=== PATIENT | male | born 2000 | race Two or more races ===

== ENCOUNTER 2023-01-31 15:17 | Emergency (ER) | payer OTHER ==
[2023-01-31 15:24] VITALS: RESP 18; TEMP 98.1
--- NOTE | 2023-01-31 17:27 | ED ---
General Adult HPI - General Source: patient Mode of arrival: ambulatory Limitations: no limitations <Bhargavi Forrest - Last Filed: 01/31/23 17:27> - History of Present Illness Onset/Timin -: hour(s) Location: abdomen Radiation: non-radiation Quality: aching Consistency: constant Improves with: none Worsens with: none Associated Symptoms: nausea/vomiting Treatments Prior to Arrival: none <Luis Andino - Last Filed: 02/12/23 23:23> - General Chief complaint: Abdominal Pain Stated complaint: abd pain Time Seen by Provider: 01/31/23 17:27 - History of Present Illness Initial comments: 22-year-old -M[place] male presents the emergency department with a chief complaint of lower abdominal pain that started last night. He is complaining of accompanying symptoms of nausea and vomiting. (Bhargavi Forrest) this patient presents with complaint of left lower quadrant pain as well as vomiting and diarrhea that it started last night. Patient states he is at [facility] and they felt that he should have evaluation here for the pain. Patient states she had 3 episodes of vomiting and 3 episodes of diarrhea in the past day. No coffee-ground emesis. No bloody or tarry stools. (Luis Andino) - Related Data Previous Rx's Medication Instructions Recorded Dicyclomine [Bentyl] 20 mg PO QID #15 tablet 01/31/23 Ondansetron Odt [Zofran ODT] 4 mg PO Q8HR PRN #10 tab 01/31/23 Allergies Allergy/AdvReac Type Severity Reaction Status Date / Time No Known Allergies Allergy Verified 01/31/23 15:24 Review of Systems ROS Other: All systems not noted in ROS Statement are negative. <Bhargavi Forrest - Last Filed: 01/31/23 17:27> ROS Other: All systems not noted in ROS Statement are negative. Constitutional: Denies: fever, chills Respiratory: Denies: cough, dyspnea Cardiovascular: Denies: chest pain, palpitations Gastrointestinal: Reports: abdominal pain, nausea, vomiting, diarrhea. Denies: hematemesis, melena, hematochezia Genitourinary: Denies: dysuria, hematuria, testicular pain Musculoskeletal: Denies: back pain Skin: Denies: rash Neurological: Denies: headache, weakness, numbness <Luis Andino - Last Filed: 02/12/23 23:23> ROS Statement: Those systems with pertinent positive or pertinent negative responses have been documented in the HPI. Past Medical History Past Medical History: Unable to Obtain History of Any Multi-Drug Resistant Organisms: None Reported Past Surgical History: Unable to Obtain Past Psychological History: ADD/ADHD, Anxiety Smoking Status: Current some day smoker Past Alcohol Use History: None Reported Past Drug Use History: Marijuana, Prescription Drug Abuse <AdrianeBhargavi - Last Filed: 01/31/23 17:27> General Exam Limitations: no limitations <AdrianeBhargavi - Last Filed: 01/31/23 17:27> General appearance: alert, in no apparent distress Head exam: Present: atraumatic, normocephalic Eye exam: Present: normal appearance. Absent: scleral icterus, conjunctival injection Neck exam: Present: normal inspection Respiratory exam: Present: normal lung sounds bilaterally. Absent: respiratory distress, wheezes, rales, rhonchi, stridor Cardiovascular Exam: Present: regular rate, normal rhythm, normal heart sounds. Absent: systolic murmur, diastolic murmur, rubs, gallop GI/Abdominal exam: Present: soft, tenderness. Absent: distended, guarding, rebound, rigid, mass, pulsatile mass, hernia Extremities exam: Present: normal inspection, normal capillary refill. Absent: pedal edema, calf tenderness Back exam: Present: normal inspection. Absent: CVA tenderness (R), CVA tenderness (L) Neurological exam: Present: alert Skin exam: Present: warm, dry, intact, normal color. Absent: rash <Luis Andino - Last Filed: 02/12/23 23:23> - General Exam Comments Initial Comments: Visual Physical Exam Vital signs reviewed General: Well-appearing, nontoxic, no acute distress. Head: Normocephalic, atraumatic Eyes: PERRLA, EOMI ENT: Airway patent Chest: Nonlabored breathing Skin: No visual rash, normal skin tone Neuro: Alert and oriented 3 Musculoskeletal: No gross abnormalities (Bhargavi Forrest) Course Vital Signs 01/31/23 01/31/23 15:19 20:59 Temperature 98.1 F Pulse Rate 63 69 Respiratory 18 18 Rate Blood Pressure 120/70 122/76 O2 Sat by Pulse 98 98 Oximetry Medical Decision Making - Lab Data Result diagrams: 01/31/23 19:08 01/31/23 19:08 <Luis nAdino - Last Filed: 02/12/23 23:23> - Medical Decision Making This patient is a 22-year-old man [facility] to have evaluation for his abdominal pain and vomiting. He did have computed tomography scan of the abdomen which I interpreted as showing no evidence of acute surgical condition or bowel obstruction. Was pt. sent in by a medical professional or institution (, MARYAN, HOT ROOM ATTENDANT, urgent care, hospital, or correction...) When possible be specific @ -Patient is sent from [facility] to have evaluation Did you speak to anyone other than the patient for history (EMS, parent, family, police, friend...)? What history was obtained from this source @ -[No] Did you review nursing and triage notes (agree or disagree)? Why? @ -[I reviewed and agree with nursing and triage notes] Were old charts reviewed (outside hosp., previous admission, EMS record, old EKG, old radiological studies, urgent care reports/EKG's, correction records)? Report findings @ -[No old charts were reviewed] Differential Diagnosis (chest pain, altered mental status, abdominal pain women, abdominal pain men, vaginal bleeding, weakness, fever, dyspnea, syncope, headache, dizziness, GI bleed, back pain, seizure, CVA, palpatations, mental health, musculoskeletal)? @ -MDM differential abdominal pain EKG interpreted by me (3pts min.). @ -[ X-rays interpreted by me (1pt min.). @ -[None done] CT interpreted by me (1pt min.). @ -[As above U/S interpreted by me (1pt. min.). @ -[None done] What testing was considered but not performed or refused? (CT, X-rays, U/S, labs)? Why? @ -[None] What meds were considered but not given or refused? Why? @ -[None] Did you discuss the management of the patient with other professionals (professionals i.e. MARYAN Ortiz, HOT ROOM ATTENDANT, lab, RT, psych nurse, social director, equipment cleaner, teacher, bsa officer, community case manager)? Give summary @ -[No] Was smoking cessation discussed for >3mins.? @ -[No] Was critical care preformed (if so, how long)? @ -[No] Were there social determinants of health that impacted care today? How? (Homelessness, low income, unemployed, alcoholism, drug addiction, transportation, low edu. Level, literacy, decrease access to med. care, shelter, rehab)? @ -[No] Was there de-escalation of care discussed even if they declined (Discuss DNR or withdrawal of care, Hospice)? DNR status @ -[No] What co-morbidities impacted this encounter? (DM, HTN, Smoking, COPD, CAD, Cancer, CVA, ARF, Chemo, Hep., AIDS, mental health diagnosis, sleep apnea, morbid obesity)? @ -[None] Was patient admitted / discharged? Hospital course, mention meds given and route, prescriptions, significant lab abnormalities, going to OR and other pertinent info. @ -Patient is discharged here after having symptomatic treatment for his abdominal pain. He has had good relief. Discussed appropriate further care and follow-up as well as return parameters. Undiagnosed new problem with uncertain prognosis? @ -[No] Drug Therapy requiring intensive monitoring for toxicity (Heparin, Nitro, Insulin, Cardizem)? @ -[No] Were any procedures done? @ -[No] Diagnosis/symptom? @ -[Acute abdominal pain Acute, or Chronic, or Acute on Chronic? @ -[default] Uncomplicated (without systemic symptoms) or Complicated (systemic symptoms)? @ -[Uncomplicated Side effects of treatment? @ -[No] Exacerbation, Progression, or Severe Exacerbation? @ -[No] Poses a threat to life or bodily function? How? (Chest pain, [place], [place], pneumonia, PE, COPD, DKA, ARF, appy, cholecystitis, CVA, Diverticulitis, Homicidal, Suicidal, threat to staff... and all critical care pts) @ -[No] (Luis Andino) - Lab Data Lab Results 01/31/23 01/31/23 01/31/23 Range/Units 19:08 19:08 19:08 WBC 10.7 H (3.8-10.6) k/uL RBC 4.99 (4.30-5.90) m/uL Hgb 14.7 (13.0-17.5) gm/dL Hct 44.0 (39.0-53.0) % MCV 88.2 (80.0-100.0) fL MCH 29.4 (25.0-35.0) pg MCHC 33.4 (31.0-37.0) g/dL RDW 13.7 (11.5-15.5) % Plt Count 197 (150-450) k/uL MPV 7.1 Neutrophils % 63 % Lymphocytes % 28 % Monocytes % 4 % Eosinophils % 3 % Basophils % 0 % Neutrophils # 6.8 (1.3-7.7) k/uL Lymphocytes # 3.0 (1.0-4.8) k/uL Monocytes # 0.5 (0-1.0) k/uL Eosinophils # 0.3 (0-0.7) k/uL Basophils # 0.0 (0-0.2) k/uL Sodium 139 (137-145) mmol/L Potassium 4.0 (3.5-5.1) mmol/L Chloride 111 H (98-107) mmol/L Carbon Dioxide 21 L (22-30) mmol/L Anion Gap 7 mmol/L BUN 9 (9-20) mg/dL Creatinine 0.86 (0.66-1.25) mg/dL Est GFR (CKD-EPI)AfAm >90 (>60 ml/min/1.73 sqM) Est GFR (CKD-EPI)NonAf >90 (>60 ml/min/1.73 sqM) Glucose 86 (74-99) mg/dL Calcium 8.8 (8.4-10.2) mg/dL Total Bilirubin 1.2 (0.2-1.3) mg/dL AST 23 (17-59) U/L ALT 16 (4-49) U/L Alkaline Phosphatase 89 (38-126) U/L C-Reactive Protein <0.5 (<1.0) mg/dL Total Protein 7.5 (6.3-8.2) g/dL Albumin 4.2 (3.5-5.0) g/dL Amylase 69 (30-110) U/L Lipase 33 (23-300) U/L Urine Color Yellow Urine Appearance Clear (Clear) Urine pH 6.0 (5.0-8.0) Ur Specific Thompson 1.025 (1.001-1.035) Urine Protein Negative (Negative) Urine Glucose (UA) Negative (Negative) Urine Ketones 2+ H (Negative) Urine Blood Trace H (Negative) Urine Nitrite Negative (Negative) Urine Bilirubin Negative (Negative) Urine Urobilinogen <2.0 (<2.0) mg/dL Ur Leukocyte Esterase Negative (Negative) Urine RBC 1 (0-5) /hpf Urine WBC 1 (0-5) /hpf Ur Squamous Epith Cells <1 (0-4) /hpf Urine Mucus Many H (None) /hpf Disposition <Bhargavi Forrest - Last Filed: 01/31/23 17:27> Is patient prescribed a controlled substance at d/c from ED?: No <Luis Andino - Last Filed: 02/12/23 23:23> Clinical Impression: Abdominal pain Disposition: HOME SELF-CARE Condition: Good Instructions (If sedation given, give patient instructions): Abdominal Pain (ED) Prescriptions: Dicyclomine [Bentyl] 20 mg PO QID #15 tablet Ondansetron Odt [Zofran ODT] 4 mg PO Q8HR PRN #10 tab PRN Reason: Nausea Referrals: None,Stated [REFERRING] - 1-2 days
[2023-01-31] MEDS ORDERED: DICYCLOMINE 20 MG TAB PO STA (18:29)
--- NOTE | 2023-01-31 19:13 | CT ---
EXAMINATION TYPE: CT abdomen pelvis wo con CT DLP: 565.1 mGycm, Automated exposure control for dose reduction was used. DATE OF EXAM: 01/31/2023 7:03 PM COMPARISON: None CLINICAL INDICATION:Male, 22 years old with history of LLQ tenderness; lower abdominal pain and tende rness. TECHNIQUE: Standard CT of the abdomen and pelvis without IV or oral contrast. Lack of IV or oral co ntrast limits evaluation of solid and hollow organ viscera. Coronal and sagittal reformats were perfo rmed. FINDINGS: Examination is limited due to paucity of intraabdominal fat. LOWER CHEST: Unremarkable ABDOMEN LIVER: Unremarkable noncontrast appearance. GALLBLADDER AND BILE DUCTS: Unremarkable. PANCREAS: Unremarkable noncontrast appearance. SPLEEN: Unremarkable noncontrast appearance. ADRENAL GLANDS: Unremarkable noncontrast appearance. KIDNEYS AND URETERS: No evidence of hydronephrosis or renal calculus. The ureters are unremarkable. PELVIS BLADDER: Unremarkable REPRODUCTIVE: Unremarkable. ABDOMEN & PELVIS STOMACH AND BOWEL: Stomach and duodenum are unremarkable. No focal wall thickening or surrounding inf lammatory changes. No evidence of bowel obstruction. The appendix is not visualized however there is no significant inflammatory changes within the right lower quadrant. PERITONEUM: No evidence of pneumoperitoneum or free fluid. VASCULATURE: No evidence of aortic aneurysm. MUSCULOSKELETAL: No acute osseous abnormalities LYMPH NODES: No gross evidence for lymphadenopathy. SOFT TISSUE/ABDOMINAL WALL: Unremarkable IMPRESSION: No acute abdominal/pelvic process within limitations of a noncontrast exam.
[2023-01-31 19:18] LABS: Basophils % (A) 0 %; Eosinophils # (A) 0.3 k/uL (0-0.7); Eosinophils % (A) 3 %; HGB 14.7 gm/dL (13.0-17.5); Lymphocytes % (A) 28 %; MCH 29.4 pg (25.0-35.0); MCHC 33.4 g/dL (31.0-37.0); MCV 88.2 fL (80.0-100.0); Mean Platelet Volume 7.1; Monocytes # (A) 0.5 k/uL (0-1.0); Monocytes % (A) 4 %; Neutrophils # (A) 6.8 k/uL (1.3-7.7); Neutrophils % (A) 63 %; Platelet Count 197 k/uL (150-450); RBC 4.99 m/uL (4.30-5.90); RDW 13.7 % (11.5-15.5); WBC 10.7 k/uL (3.8-10.6)
[2023-01-31 19:27] LABS: Appearance,Urine Clear (Clear); Bilirubin,Urine Negative (Negative); Blood,Urine Trace (Negative); Color,Urine Yellow; Glucose,Urine (UA) Negative (Negative); Ketones,Urine 2+ (Negative); Leukocyte Esterase,Urine Negative (Negative); Mucus,Urine Many /hpf; Nitrite,Urine Negative (Negative); Protein,Urine Negative (Negative); RBC,Urine 1 /hpf (0-5); Specific Gravity,Urine 1.025 (1.001-1.035); Squamous Epithelial Cell,Urine <1 /hpf (0-4); Urobilinogen,Urine <2.0 mg/dL (<2.0); WBC,Urine 1 /hpf (0-5)
[2023-01-31 19:42] LABS: ALT 16 U/L (4-49); AST 23 U/L (17-59); African American GFR (CKD) >90 (>60 ml/min/1.73 sqM); Albumin 4.2 g/dL (3.5-5.0); Alkaline Phosphatase 89 U/L (38-126); Amylase 69 U/L (30-110); Anion Gap 7 mmol/L; Blood Urea Nitrogen 9 mg/dL (9-20); C Reactive Protein <0.5 mg/dL (<1.0); Calcium 8.8 mg/dL (8.4-10.2); Carbon Dioxide 21 mmol/L (22-30); Chloride 111 mmol/L (98-107); Glucose 86 mg/dL (74-99); Lipase 33 U/L (23-300); Non-African American GFR(CKD) >90 (>60 ml/min/1.73 sqM); Sodium 139 mmol/L (137-145); Total Bilirubin 1.2 mg/dL (0.2-1.3); Total Protein 7.5 g/dL (6.3-8.2)
[2023-01-31] MEDS ORDERED: ONDANSETRON 4 MG/2 ML VIAL IVP STA (20:01)
[2023-01-31] MEDS ORDERED: KETOROLAC 15 MG/ML 1 ML VIAL IVP STA (20:17)
[2023-01-31 21:01] VITALS: BP 122/76; PULSE 69
== END 2023-01-31 21:00 | disposition home or self-care (01) ==
LOC: EC 15:17
DX: R10.32 Left lower quadrant pain (principal); F17.200 Nicotine dependence, unspecified, uncomplicated; F12.90 Cannabis use, unspecified, uncomplicated; F15.90 Other stimulant use, unspecified, uncomplicated
CPT/HCPCS: 36415; 80053; 82150; 83690; 85025; 86140; 81001; 74176; 99285; 96374; 96375; J2405; J1885

== ENCOUNTER 2023-03-02 19:00 | Emergency (ER) | payer OTHER ==
[2023-03-02 19:30] VITALS: BP 108/63; TEMP 98.4
--- NOTE | 2023-03-02 19:50 | ED ---
Lower Extremity Injury HPI - General Source: RN notes reviewed Mode of arrival: ambulatory Limitations: no limitations <Charla Simmons - Last Filed: 03/02/23 19:48> <Naman Marquez - Last Filed: 03/03/23 00:28> - General Chief Complaint: Extremity Injury, Lower Stated Complaint: left ankle pain Time Seen by Provider: 03/02/23 19:48 - History of Present Illness Initial Comments: Patient is a 22-year-old male presents to the emergency department for left ankle injury. Patient rolled it while playing volleyball at [place]. (Charla Simmons) Patient is a 22-year-old male presenting with chief complaint of left ankle pain. Patient is currently at [employer]. He was playing volleyball and sandals when he landed on his ankle in inversion. He admits to tenderness and swelling. He has pain with weightbearing. No numbness or tingling. (Naman Marquez) - Related Data Previous Rx's Medication Instructions Recorded Dicyclomine [Bentyl] 20 mg PO QID #15 tablet 01/31/23 Ondansetron Odt [Zofran ODT] 4 mg PO Q8HR PRN #10 tab 01/31/23 Allergies Allergy/AdvReac Type Severity Reaction Status Date / Time No Known Allergies Allergy Verified 03/02/23 19:30 Review of Systems ROS Other: All systems not noted in ROS Statement are negative. <Charla Simmons - Last Filed: 03/02/23 19:48> ROS Other: All systems not noted in ROS Statement are negative. <Naman Marquez - Last Filed: 03/03/23 00:28> ROS Statement: Those systems with pertinent positive or pertinent negative responses have been documented in the HPI. Past Medical History Past Medical History: Unable to Obtain History of Any Multi-Drug Resistant Organisms: None Reported Past Surgical History: Unable to Obtain Past Psychological History: ADD/ADHD, Anxiety Smoking Status: Current some day smoker Past Alcohol Use History: None Reported Past Drug Use History: Marijuana, Prescription Drug Abuse <Charla Simmons - Last Filed: 03/02/23 19:48> General Exam Limitations: no limitations <Charla Simmons - Last Filed: 03/02/23 19:48> Limitations: no limitations General appearance: alert, in no apparent distress Head exam: Present: atraumatic, normocephalic, normal inspection Eye exam: Present: normal appearance, EOMI. Absent: scleral icterus, periorbital swelling Neck exam: Present: normal inspection, full ROM Left Ankle exam: Present: tenderness, swelling. Absent: full ROM Neurological exam: Present: alert, oriented X3, CN II-XII intact Psychiatric exam: Present: normal affect, normal mood Skin exam: Present: warm, dry, intact, normal color. Absent: rash <Naman Marquez - Last Filed: 03/03/23 00:28> - General Exam Comments Initial Comments: Visual Physical Exam Vital signs reviewed General: Well-appearing, nontoxic, no acute distress. Head: Normocephalic, atraumatic Eyes: PERRLA, EOMI ENT: Airway patent Chest: Nonlabored breathing Skin: No visual rash, normal skin tone Neuro: Alert and oriented 3 Musculoskeletal: swelling left ankle (Iris,Charla) Course Vital Signs 03/02/23 03/02/23 19:24 20:42 Temperature 98.4 F Pulse Rate 55 L 76 Respiratory 26 H 16 Rate Blood Pressure 108/63 O2 Sat by Pulse 97 98 Oximetry Medical Decision Making <Naman Marquez - Last Filed: 03/03/23 00:28> - Medical Decision Making Was pt. sent in by a medical professional or institution (MARYAN Ortiz, CHIEF SPECIALIST LEED, urgent care, hospital, or residential...) When possible be specific @ -No Did you speak to anyone other than the patient for history (EMS, parent, family, police, friend...)? What history was obtained from this source @ -No Did you review nursing and triage notes (agree or disagree)? Why? @ -I reviewed and agree with nursing and triage notes Were old charts reviewed (outside hosp., previous admission, EMS record, old EKG, old radiological studies, urgent care reports/EKG's, residential records)? Report findings @ -No old charts were reviewed Differential Diagnosis (chest pain, altered mental status, abdominal pain women, abdominal pain men, vaginal bleeding, weakness, fever, dyspnea, syncope, headache, dizziness, GI bleed, back pain, seizure, CVA, palpatations, mental health, musculoskeletal)? @ -Differential Musculoskeletal Muscular strain, contusion, ligament sprain, fracture, arthritis, septic arthritis, bursitis, cellulitis, muscle spasm, nerve compression, DVT, arterial occlusion, herpes zoster, electrolyte abnormality, tumor.... This is not meant to be in all inclusive list EKG interpreted by me (3pts min.). @ -As above X-rays interpreted by me (1pt min.). @ -X-ray shows no fracture or dislocation CT interpreted by me (1pt min.). @ -None done U/S interpreted by me (1pt. min.). @ -None done What testing was considered but not performed or refused? (CT, X-rays, U/S, labs)? Why? @ -None What meds were considered but not given or refused? Why? @ -None Did you discuss the management of the patient with other professionals (professionals i.e. , PA, CHIEF SPECIALIST LEED, lab, RT, psych nurse, social problems specialist, overhauler bus truck, teacher, data officer, piano case and bench assembler)? Give summary @ -No Was smoking cessation discussed for >3mins.? @ -No Was critical care preformed (if so, how long)? @ -No Were there social determinants of health that impacted care today? How? (Homelessness, low income, unemployed, alcoholism, drug addiction, transportation, low edu. Level, literacy, decrease access to med. care, detention, rehab)? @ -No Was there de-escalation of care discussed even if they declined (Discuss DNR or withdrawal of care, Hospice)? DNR status @ -No What co-morbidities impacted this encounter? (DM, HTN, Smoking, COPD, CAD, [place] cer, CVA, ARF, Chemo, Hep., AIDS, mental health diagnosis, sleep apnea, morbid obesity)? @ -None Was patient admitted / discharged? Hospital course, mention meds given and route, prescriptions, significant lab abnormalities, going to OR and other pertinent info. @ -This is a 22-year-old male presenting with chief complaint of left ankle inj ury. On physical examination there is tenderness and swelling. X-ray shows no fracture or dislocation. Patient is educated on ankle sprain and supportive management at home including rest, ice, compression, and elevation. Take Motrin and Tylenol as needed for pain control. Patient hard he has crutches. He is provided with an ankle stirrup splint. Follow-up with PCP. Report back to ER with any new or worsening symptoms. Discussed return parameters and answered all questions. Patient conveyed verbal understanding and agreed to the plan. I discussed this case in detail with my attending Dr. Rangel Undiagnosed new problem with uncertain prognosis? @ -No Drug Therapy requiring intensive monitoring for toxicity (Heparin, Nitro, Insulin, Cardizem)? @ -No Were any procedures done? @ -No Diagnosis/symptom? @ -Ankle sprain Acute, or Chronic, or Acute on Chronic? @ -Acute Uncomplicated (without systemic symptoms) or Complicated (systemic symptoms)? @ -Uncomplicated Side effects of treatment? @ -No Exacerbation, Progression, or Severe Exacerbation? @ -No Poses a threat to life or bodily function? How? (Chest pain, USA, [place], pneumonia, PE, COPD, DKA, ARF, appy, cholecystitis, CVA, Diverticulitis, Homicidal, Suicidal, threat to staff... and all critical care pts) @ -No (Naman Marquez) Disposition <Charla Simmons - Last Filed: 03/02/23 19:48> Is patient prescribed a controlled substance at d/c from ED?: No Time of Disposition: 20:07 <Naman Marquez - Last Filed: 03/03/23 00:28> Clinical Impression: Ankle sprain Disposition: HOME SELF-CARE Condition: Good Instructions (If sedation given, give patient instructions): Ankle Sprain (ED) Additional Instructions: Follow-up with PCP. Report back to ER with any new or worsening symptoms. Take Motrin and Tylenol as needed for pain control. Rest, ice, compress, and elevate the ankle. Use crutches to remain nonweightbearing until symptoms improve. Referrals: None,Stated [REFERRING] - 1-2 days
--- NOTE | 2023-03-02 19:58 | XR ---
EXAMINATION TYPE: XR ankle complete LT DATE OF EXAM: 03/02/2023 7:45 PM INDICATION: Patient age:Male; 22 years old; Reason for study: fall, pain, swelling; COMPARISON: None TECHNIQUE: The left ankle is imaged in frontal, lateral and oblique projections. FINDINGS: There is no evidence of acute osseous pathology. The joint spaces are well-preserved without evidenc e of subluxation or dislocation. Kager's fat pad is intact. Mild soft tissue swelling around the ankl e. No radiopaque foreign bodies are identified. IMPRESSION: 1. No evidence of acute fracture. 2. Subcutaneous swelling around the ankle.
[2023-03-02] MEDS ORDERED: ACETAMINOPHEN TAB 325 MG TAB PO STA (20:08)
[2023-03-02] MEDS ORDERED: IBUPROFEN 400 MG TAB PO STA (20:08)
[2023-03-02 20:43] VITALS: PULSE 76; RESP 16
== END 2023-03-02 20:43 | disposition home or self-care (01) ==
LOC: EC 19:00
DX: S93.402A Sprain of unspecified ligament of left ankle, initial encounter (principal); F12.90 Cannabis use, unspecified, uncomplicated; Z86.59 Personal history of other mental and behavioral disorders; X58.XXXA Exposure to other specified factors, initial encounter; Y93.69 Activity, other involving other sports and athletics played as a team or group
CPT/HCPCS: 99283

== ENCOUNTER 2023-07-27 17:29 | Emergency (ER) | payer OTHER ==
[2023-07-27] MEDS ORDERED: MORPHINE SULFATE 4 MG/ML SYRINGE IVP STA (17:37)
--- NOTE | 2023-07-27 17:37 | ED ---
General Adult HPI - General Stated complaint: foot injury Time Seen by Provider: 07/27/23 17:31 Source: patient, EMS Mode of arrival: EMS Limitations: no limitations - History of Present Illness Initial comments: 23-year-old male presents to ED with a chief complaint of toe injury. Patient was playing basketball in flip flops and states that when his left foot landed his left fifth toe landed on elevated surface and it and backwards. Patient states that he saw bone. Tetanus status unknown. No other injuries at this time. No other complaints. - Related Data Previous Rx's Medication Instructions Recorded Dicyclomine [Bentyl] 20 mg PO QID #15 tablet 01/31/23 Ondansetron Odt [Zofran ODT] 4 mg PO Q8HR PRN #10 tab 01/31/23 Acetaminophen Tab [Tylenol] 500 mg PO Q4H PRN #30 tablet 07/27/23 Naproxen [Naprosyn] 250 mg PO Q6H PRN #30 tab 07/27/23 Allergies Allergy/AdvReac Type Severity Reaction Status Date / Time No Known Allergies Allergy Verified 07/27/23 17:35 Review of Systems ROS Statement: Those systems with pertinent positive or pertinent negative responses have been documented in the HPI. ROS Other: All systems not noted in ROS Statement are negative. Past Medical History Past Medical History: Unable to Obtain History of Any Multi-Drug Resistant Organisms: None Reported Past Surgical History: Unable to Obtain Past Psychological History: ADD/ADHD, Anxiety Smoking Status: Current some day smoker Past Alcohol Use History: None Reported Past Drug Use History: Marijuana, Prescription Drug Abuse General Exam Limitations: no limitations General appearance: alert Neck exam: Present: normal inspection Respiratory exam: Present: normal lung sounds bilaterally GI/Abdominal exam: Present: soft Extremities exam: Present: other (Strength and sensation of the left foot intact. Left fifth toe with open wound on the bottom of the toe at the MTP jorge int. Able to flex and extend the right fifth toe without significant difficulty.) Neurological exam: Present: alert, oriented X3 Skin exam: Present: warm, dry Course Vital Signs 07/27/23 17:31 Temperature 98.1 F Pulse Rate 103 H Respiratory 18 Rate Blood Pressure 97/58 O2 Sat by Pulse 100 Oximetry Procedures - Laceration Laceration #1 Site: foot, other (R 5th toe) Size (cm): 2 Description: linear Depth: simple, single layer Anesthetic Used: lidocaine 1%, without epi Amount (mls): 3 Pre-repair: wound explored, irrigated extensively, deep structures intact Type of Sutures: nylon Size of Sutures: 4-0 Number of Sutures: 3 Technique: simple, interrupted Patient Tolerated Procedure: well, no complications Medical Decision Making - Medical Decision Making Was pt. sent in by a medical professional or institution (, PA, MACH[employer], urgent care, hospital, or halfway...) When possible be specific @ -No Did you speak to anyone other than the patient for history (EMS, parent, family, police, friend...)? What history was obtained from this source @ -No Did you review nursing and triage notes (agree or disagree)? Why? @ -I reviewed and agree with nursing and triage notes Were old charts reviewed (outside hosp., previous admission, EMS record, old EKG, old radiological studies, urgent care reports/EKG's, halfway records)? Report findings @ -No old charts were reviewed Differential Diagnosis (chest pain, altered mental status, abdominal pain women, abdominal pain men, vaginal bleeding, weakness, fever, dyspnea, syncope, headache, dizziness, GI bleed, back pain, seizure, CVA, palpatations, mental health, musculoskeletal)? @ -Differential Musculoskeletal Muscular strain, contusion, ligament sprain, fracture, arthritis, septic arthritis, bursitis, cellulitis, muscle spasm, nerve compression, DVT, arterial occlusion, herpes zoster, electrolyte abnormality, tumor.... This is not meant to be in all inclusive list EKG interpreted by me (3pts min.). @ -As above X-rays interpreted by me (1pt min.). @ -X-ray of the foot and toes show no evidence of fracture, dislocation, or other acute process. CT interpreted by me (1pt min.). @ -None done U/S interpreted by me (1pt. min.). @ -None done What testing was considered but not performed or refused? (CT, X-rays, U/S, labs)? Why? @ -None What meds were considered but not given or refused? Why? @ -None Did you discuss the management of the patient with other professionals (lata hein iSajane. , PA, [employer], lab, RT, psych nurse, social sciences department chair, health concierge, teacher, commanding officer traffic division, window caser)? Give summary @ -No Was smoking cessation discussed for >3mins.? @ -No Was critical care preformed (if so, how long)? @ -No Were there social determinants of health that impacted care today? How? (Homelessness, low income, unemployed, alcoholism, drug addiction, transportation, low edu. Level, literacy, decrease access to med. care, usp, rehab)? @ -No Was there de-escalation of care discussed even if they declined (Discuss DNR or withdrawal of care, Hospice)? DNR status @ -No What co-morbidities impacted this encounter? (DM, HTN, Smoking, COPD, CAD, Cancer, CVA, ARF, Chemo, Hep., AIDS, mental health diagnosis, sleep apnea, morbid obesity)? @ -None Was patient admitted / discharged? Hospital course, mention meds given and route, prescriptions, significant lab abnormalities, going to OR and other pertinent info. @ -Discharge 23-year-old male presenting to the ED with right fifth toe injury reporting that it bent backwards after landing on an uneven surface. Imaging here shows no evidence of acute process. Did have an open wound on the bottom of the foot and there was initial concern for open fracture. Therefore, patient did receive 2 g of Cefazolin in the ED. Patient had laceration repaired to the bottom of the right fifth toe. For further details please see procedure note. Discharged home in stable condition. Discussed return precautions patient verbalizes agree. Undiagnosed new problem with uncertain prognosis? @ -No Drug Therapy requiring intensive monitoring for toxicity (Heparin, Nitro, Insulin, Cardizem)? @ -No Were any procedures done? @ -No Diagnosis/symptom? @ -Right 5th toe injury Acute, or Chronic, or Acute on Chronic? @ -Acute Uncomplicated (without systemic symptoms) or Complicated (systemic symptoms)? @ -Uncomplicated Side effects of treatment? @ -No Exacerbation, Progression, or Severe Exacerbation? @ -No Poses a threat to life or bodily function? How? (Chest pain, USA, [place], pneumonia, PE, COPD, DKA, ARF, appy, cholecystitis, CVA, Diverticulitis, Homicidal, Suicidal, threat to staff... and all critical care pts) @ -No Disposition Clinical Impression: Laceration Disposition: HOME SELF-CARE Condition: Good Instructions (If sedation given, give patient instructions): Care For Your Stitches (ED) Additional Instructions: Please return to the Emergency Department if symptoms worsen or any other concerns. Monitor for signs of infection. Return in 10-14 days for suture removal. Prescriptions: Naproxen [Naprosyn] 250 mg PO Q6H PRN #30 tab PRN Reason: Pain Acetaminophen Tab [Tylenol] 500 mg PO Q4H PRN #30 tablet PRN Reason: Pain Is patient prescribed a controlled substance at d/c from ED?: No Referrals: None,Stated [Primary Care Provider] - 1-2 days Time of Disposition: 19:17
[2023-07-27] MEDS ORDERED: SODIUM CHLORIDE 0.9% 1,000 ML IV STA (17:40)
[2023-07-27] MEDS ORDERED: KETOROLAC 15 MG/ML 1 ML VIAL IVP STA (17:40)
[2023-07-27 17:43] VITALS: BP 97/58; PULSE 103; RESP 18; TEMP 98.1
--- NOTE | 2023-07-27 18:13 | XR ---
EXAMINATION TYPE: XR foot complete 3 views RT, XR toes 3 views RT DATE OF EXAM: 07/27/2023 COMPARISON: NONE HISTORY: 24-year-old male basketball injury with pain and deformity of the fifth toe. 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 No acute fracture, subluxati on, dislocation is seen. IMPRESSION (right foot and toes): No acute osseous abnormality seen.
[2023-07-27] MEDS ORDERED: LIDOCAINE 1% INJ 10MG/ML (20 ML MDV) SQ ONE (18:18)
[2023-07-27] MEDS ORDERED: DIPH,PERTUS(ACELL)TETVAC-LF 0.5 ML VIAL IM ONE (18:37)
[2023-07-27] MEDS ORDERED: BACITRACIN OINT 1 EACH PACKET TOPICAL ONE (19:10)
[2023-07-27] MEDS ORDERED: IBUPROFEN 600 MG STARTER PACK 4 TAB BTL PO STA (19:12)
== END 2023-07-27 19:35 | disposition home or self-care (01) ==
LOC: EC 17:29
DX: S91.119A Laceration without foreign body of unspecified toe without damage to nail, initial encounter (principal); F17.200 Nicotine dependence, unspecified, uncomplicated; F12.90 Cannabis use, unspecified, uncomplicated; Z86.59 Personal history of other mental and behavioral disorders; Z23 Encounter for immunization; W18.30XA Fall on same level, unspecified, initial encounter; Y93.67 Activity, basketball
CPT/HCPCS: 73630; 73660; 90715; 99284; 96365; 96375; 90471; 12001; J0690; J2001; J1885

== ENCOUNTER 2024-06-01 10:15 | Emergency (ER) | payer OTHER ==
[~2024-06-01 10:15] MED LIST: ACETAMINOPHEN TAB 500 MG TAB ONE; IBUPROFEN 800 MG TAB ONE; dexAMETHasone 4 MG TAB ONE
--- NOTE | 2024-07-05 13:18 | XR ---
Patient Jerry Yung ID [id number] Order # EXAMINATION TYPE: XR chest 2V DATE OF EXAM: 06/01/2024 COMPARISON: No comparison available on downtime PACS. INDICATION: Cough sore throat body aches TECHNIQUE: Frontal and lateral views of the chest are obtained. FINDINGS: The heart size is normal. The pulmonary vasculature is normal. The lungs are clear. IMPRESSION: 1. No acute pulmonary process.
== END 2024-06-01 12:22 | disposition home or self-care (01) ==
LOC: EC 10:15
CPT/HCPCS: 71046; 99283

== ENCOUNTER 2024-12-29 14:50 | Emergency (ER) | payer OTHER ==
[2024-12-29 14:54] VITALS: RESP 20
--- NOTE | 2024-12-29 14:59 | ED ---
Lower Extremity Injury HPI - General Chief Complaint: Extremity Injury, Lower Stated Complaint: Right ankle injury Time Seen by Provider: 12/29/24 14:53 Source: patient, EMS, RN notes reviewed Mode of arrival: EMS Limitations: no limitations - History of Present Illness Initial Comments: 24-year-old male presents emergency room via EMS from [place] chief complaint of right ankle injury. Patient states he was playing basketball rolled his ankle. Patient complains of right lateral ankle pain no prior fractures or sprains. Patient denies any other associated injuries. - Related Data Previous Rx's Medication Instructions Recorded Dicyclomine [Bentyl] 20 mg PO QID #15 tablet 01/31/23 Ondansetron Odt [Zofran ODT] 4 mg PO Q8HR PRN #10 tab 01/31/23 Acetaminophen Tab [Tylenol] 500 mg PO Q4H PRN #30 tablet 07/27/23 Naproxen [Naprosyn] 250 mg PO Q6H PRN #30 tab 07/27/23 Allergies Allergy/AdvReac Type Severity Reaction Status Date / Time No Known Allergies Allergy Verified 12/29/24 14:54 Review of Systems ROS Statement: Those systems with pertinent positive or pertinent negative responses have been documented in the HPI. ROS Other: All systems not noted in ROS Statement are negative. Past Medical History Past Medical History: Asthma History of Any Multi-Drug Resistant Organisms: None Reported Past Surgical History: Unable to Obtain Past Psychological History: ADD/ADHD, Anxiety Smoking Status: Current some day smoker Past Alcohol Use History: None Reported Past Drug Use History: Cocaine, Marijuana, Prescription Drug Abuse General Exam Limitations: no limitations General appearance: alert, in no apparent distress Head exam: Present: atraumatic, normocephalic, normal inspection Eye exam: Present: normal appearance, PERRL, EOMI. Absent: scleral icterus, conjunctival injection, periorbital swelling ENT exam: Present: normal exam, mucous membranes moist Neck exam: Present: normal inspection, full ROM. Absent: tenderness, meningismus, lymphadenopathy Respiratory exam: Present: normal lung sounds bilaterally. Absent: respiratory distress, wheezes, rales, rhonchi, stridor Cardiovascular Exam: Present: regular rate, normal rhythm, normal heart sounds. Absent: systolic murmur, diastolic murmur, rubs, gallop, clicks Extremities exam: Present: other (Right ankle lateral malleolus region tenderness to palpation mild swelling noted, no proximal tib-fib tenderness no distal foot tenderness neurovascular intact) Course Vital Signs 12/29/24 14:52 Temperature 98.2 F Pulse Rate 90 Respiratory 20 Rate Blood Pressure 112/69 O2 Sat by Pulse 99 Oximetry Medical Decision Making - Medical Decision Making Was pt. sent in by a medical professional or institution (MARYAN Ortiz, MENTAL HYGIENE CONSULTANT, urgent care, hospital, or long term...) When possible be specific @ -No Did you speak to anyone other than the patient for history (EMS, parent, family, police, friend...)? What history was obtained from this source @ -No Did you review nursing and triage notes (agree or disagree)? Why? @ -I reviewed and agree with nursing and triage notes Were old charts reviewed (outside hosp., previous admission, EMS record, old EKG, old radiological studies, urgent care reports/EKG's, long term records)? Report findings @ -No old charts were reviewed Differential Diagnosis (chest pain, altered mental status, abdominal pain women, abdominal pain men, vaginal bleeding, weakness, fever, dyspnea, syncope, headache, dizziness, GI bleed, back pain, seizure, CVA, palpatations, mental health, musculoskeletal)? @ -Ankle sprain, ankle fracture EKG interpreted by me (3pts min.). @ -None X-rays interpreted by me (1pt min.). @X-ray right ankle no acute fracture soft tissue swelling CT interpreted by me (1pt min.). @ -None done U/S interpreted by me (1pt. min.). @ -None done What testing was considered but not performed or refused? (CT, X-rays, U/S, labs)? Why? @ -None What meds were considered but not given or refused? Why? @ -None Did you discuss the management of the patient with other professionals (professionals i.e. MARYAN Ortiz, MENTAL HYGIENE CONSULTANT, lab, RT, psych nurse, director of social work, real time trader, teacher, senior grants officer, immigration case worker)? Give summary @ -No Was smoking cessation discussed for >3mins.? @ -No Was critical care preformed (if so, how long)? @ -No Were there social determinants of health that impacted care today? How? (Homelessness, low income, unemployed, alcoholism, drug addiction, transportation, low edu. Level, literacy, decrease access to med. care, group home, rehab)? @ -No Was there de-escalation of care discussed even if they declined (Discuss DNR or withdrawal of care, Hospice)? DNR status @ -No What co-morbidities impacted this encounter? (DM, HTN, Smoking, COPD, CAD, Cancer, CVA, ARF, Chemo, Hep., AIDS, mental health diagnosis, sleep apnea, morbid obesity)? @ -None Was patient admitted / discharged? Hospital course, mention meds given and route, prescriptions, significant lab abnormalities, going to OR and other pertinent info. @ -Discharge patient has a right ankle sprain will be discharged in stable condition return for as discussed. Undiagnosed new problem with uncertain prognosis? @ -No Drug Therapy requiring intensive monitoring for toxicity (Heparin, Nitro, Insulin, Cardizem)? @ -No Were any procedures done? @ -No Diagnosis/symptom? @ -Right ankle sprain Acute, or Chronic, or Acute on Chronic? @ -Acute Uncomplicated (without systemic symptoms) or Complicated (systemic symptoms)? @ -Uncomplicated Side effects of treatment? @ -No Exacerbation, Progression, or Severe Exacerbation? @ -No Poses a threat to life or bodily function? How? (Chest pain, [place], [place], pneumonia, PE, COPD, DKA, ARF, appy, cholecystitis, CVA, Diverticulitis, Homicidal, Suicidal, threat to staff... and all critical care pts) @ -No Disposition Clinical Impression: Right ankle sprain Disposition: HOME SELF-CARE Condition: Stable Instructions (If sedation given, give patient instructions): Ankle Sprain (ED) Additional Instructions: Please return to the Emergency Department if symptoms worsen or any other concerns. Is patient prescribed a controlled substance at d/c from ED?: No Referrals: None,Stated [Primary Care Provider] - 1-2 days Time of Disposition: 15:24
--- NOTE | 2024-12-29 15:18 | XR ---
EXAMINATION TYPE: XR ankle complete RT DATE OF EXAM: 12/29/2024 3:10 PM COMPARISON: None. CLINICAL INDICATION: Male, 24 years old with history of pain, TECHNIQUE: XR ankle complete RT, views submitted for evaluation. FINDINGS: 2 or 3 small well-corticated ossific densities adjacent to the lateral malleolar tip likely reflectin g remote avulsion fractures or unfused ossicles. Correlate clinically for more acute process. The tomás nt spaces appear within normal limits. The overlying soft tissue appears unremarkable. Ankle mortise is intact. Soft tissues are within normal limits. IMPRESSION: 1. As above [facility], , 12/29/2024 3:16 PM
[2024-12-29] MEDS: IBUPROFEN 600 MG TAB PO STA (15:25)
[2024-12-29 15:44] VITALS: BP 115/70; PULSE 81; TEMP 98.1
== END 2024-12-29 15:43 | disposition home or self-care (01) ==
LOC: EC 14:50
DX: S93.401A Sprain of unspecified ligament of right ankle, initial encounter (principal); F17.200 Nicotine dependence, unspecified, uncomplicated; X50.1XXA Overexertion from prolonged static or awkward postures, initial encounter; Y93.67 Activity, basketball
CPT/HCPCS: 73610; 99284; 29515; L4350